=== PATIENT | female | born 1985 | race Caucasian/White ===

== ENCOUNTER 2018-02-10 17:40 | Inpatient (IN) | payer OTHER ==
[~2018-02-10] VITALS: Ht 170.2 cm; Wt 44.6 kg
[2018-02-10 17:42] VITALS: Ht 170.2 cm; Wt 44.6 kg
[2018-02-10 18:18] LABS: BASOPHIL % 0.7 % (0-2); PLATELET COUNT 365 x10^3mcL (130-400)
[2018-02-10 18:22] LABS: RED CELL DISTRIBUTION WIDTH 17.8 % (11.5-14.5)
[2018-02-10 18:27] LABS: CALCIUM 8.9 mg/dL (8.5-10.1); CARBON DIOXIDE 18.8 mmol/L (21-32); CHLORIDE SERUM 105 mmol/L (98-107); CREATININE SERUM 0.7 mg/dL (0.6-1.0); GFR1 > 60 mL/min; GLUCOSE SERUM 93 mg/dL (74-106); POTASSIUM SERUM 3.4 mmol/L (3.5-5.1); SODIUM SERUM 140 mmol/L (136-145)
[2018-02-10 18:31] LABS: ALBUMIN 4.1 g/dL (3.4-5.0); ALKALINE PHOSPHATASE 59 U/L (46-116); ALT/SGPT 24 U/L (14-59); AMYLASE 73 U/L (25-115); AST/SGOT 17 U/L (15-37); BILIRUBIN TOTAL 0.8 mg/dL (0.20-1.00); LIPASE 340 IU/L (73-393); TOTAL PROTEIN, SERUM 7.3 g/dL (6.4-8.2)
[2018-02-10 19:05] LABS: UA SPECIFIC GRAVITY 1.025 (1.005-1.035); microscopic required? YES; urine erythrocyte TRACE (NEGATIVE)
[2018-02-10 21:22] LABS: AMPHETAMINE QUAL UR NONE DETECTED (See below)
[2018-02-10 21:31] LABS: MAGNESIUM 1.9 mg/dL (1.8-2.4); PHOSPHOROUS 2.6 mg/dL (2.5-4.9)
[2018-02-10 21:34] LABS: T3 TOTAL 1.44 ng/mL
[2018-02-10 21:35] LABS: FREE T4 1.72 ng/dL (0.76-1.46); FREE THYROXINE INDEX 4.3 ug/dL (1.4-4.5); T4(THYROXINE) 12.9 ug/dL (4.7-13.3)
[2018-02-10 22:05] VITALS: BP 122/71
[2018-02-11 06:13] VITALS: BP 106/60
[2018-02-11 06:44] LABS: BASOPHIL % 0.5 % (0-2); PLATELET COUNT 250 x10^3mcL (130-400)
[2018-02-11 06:56] LABS: RED CELL DISTRIBUTION WIDTH 17.3 % (11.5-14.5)
[2018-02-11 07:30] LABS: CARBON DIOXIDE 20.7 mmol/L (21-32); CHLORIDE SERUM 110 mmol/L (98-107); CREATININE SERUM 0.6 mg/dL (0.6-1.0); GFR1 > 60 mL/min; GLUCOSE SERUM 78 mg/dL (74-106); MAGNESIUM 1.8 mg/dL (1.8-2.4); PHOSPHOROUS 2.8 mg/dL (2.5-4.9); POTASSIUM SERUM 3.6 mmol/L (3.5-5.1); SODIUM SERUM 139 mmol/L (136-145)
[2018-02-11 09:17] VITALS: BP 109/57
[2018-02-11] MEDS ORDERED: PROTONIX20 MG PO (11:05)
[2018-02-11 11:07] VITALS: BP 109/57
== END 2018-02-11 14:51 | disposition home or self-care (01) | DRG 241 ==
LOC: ED 17:40 → MU 20:52
PROVIDERS: Internal Medicine; Specialist
DX: K29.00 Acute gastritis without bleeding (principal); E46 Unspecified protein-calorie malnutrition; F12.20 Cannabis dependence, uncomplicated; F17.210 Nicotine dependence, cigarettes, uncomplicated; G89.29 Other chronic pain; K52.9 Noninfective gastroenteritis and colitis, unspecified; Z90.49 Acquired absence of other specified parts of digestive tract; Z88.6 Allergy status to analgesic agent; Z88.1 Allergy status to other antibiotic agents; Z88.8 Allergy status to other drugs, medicaments and biological substances; Z68.1 Body mass index [BMI] 19.9 or less, adult; Z82.49 Family history of ischemic heart disease and other diseases of the circulatory system; Z81.8 Family history of other mental and behavioral disorders; Z83.79 Family history of other diseases of the digestive system; Z83.2 Family history of diseases of the blood and blood-forming organs and certain disorders involving the immune mechanism
CPT/HCPCS: 84439; 87046; 87046-59; 87338; C9113; J1630; J1885; J2270; J2405; J2550; J7030; Q0092